=== PATIENT | male | born 2005 | race African-American/Black ===

== ENCOUNTER 2025-05-20 14:49 | Emergency (ER) | payer OTHER ==
[~2025-05-20] VITALS: Ht 175.3 cm; Wt 102.3 kg
[2025-05-20] MEDS: ACETAMINOPHEN 500 MG TABLET PO ONE (15:07)
[2025-05-20] MEDS: IBUPROFEN 600 MG TABLET PO ONE (15:07)
[2025-05-20 15:50] LABS: APPEARANCE,URINE CLEAR (CLEAR); GLUCOSE, URINE (UA) NEGATIVE (NEGATIVE); LEUKOCYTE ESTERASE ,URINE NEGATIVE (NEGATIVE); NITRATE,URINE NEGATIVE (NEGATIVE); OCCULT BLOOD,URINE NEGATIVE (NEGATIVE); SPECIFIC GRAVITIY, URINE 1.031 (1.003-1.030)
[2025-05-20 20:51] VITALS: BP 119/65; PULSE 71; RESP 16; TEMP 98.3; O2SAT 97
== END 2025-05-20 20:57 | disposition home or self-care (01) ==
LOC: EMS 14:49
DX: N50.3 Cyst of epididymis (principal); N43.40 Spermatocele of epididymis, unspecified; N50.812 Left testicular pain; Z87.891 Personal history of nicotine dependence; Z98.890 Other specified postprocedural states
CPT/HCPCS: 76870; 81003; 86592; 87389; 87491; 87591; 99284